=== PATIENT | male | born 1995 | race Caucasian/White ===

== ENCOUNTER 2019-10-14 20:48 | Emergency (ER) | payer SELFPAY ==
[~2019-10-14] VITALS: Ht 172.7 cm; Wt 79.5 kg
[2019-10-14 20:59] VITALS: BP 138/92; PULSE 84; TEMP 98.9
== END 2019-10-14 22:50 | disposition home or self-care (01) ==
LOC: COL.ER 20:48
DX: S62.355A Nondisplaced fracture of shaft of fourth metacarpal bone, left hand, initial encounter for closed fracture (principal); S62.353A Nondisplaced fracture of shaft of third metacarpal bone, left hand, initial encounter for closed fracture; Z87.891 Personal history of nicotine dependence; W19.XXXA Unspecified fall, initial encounter; Y93.66 Activity, soccer